=== PATIENT | male | born 1935 | race Caucasian/White ===

== ENCOUNTER 2021-12-19 08:36 | Outpatient (CLI) | payer MEDICARE, BC ==
[2021-12-19 09:40] LABS: Anion Gap 14 mmol/L (10-20); BUN (Urea Nitrogen) 17 mg/dL (8.4-25.7); Calc. Creatinine Clearance 0 mL/min (70-130); Calcium 9.2 mg/dL (7.8-10.44); Carbon Dioxide 25 mmol/L (23-31); Chloride 106 mmol/L (98-107); Estimated GFR 74; Glucose 148 mg/dL (83-110); Potassium 4.1 mmol/L (3.5-5.1); Sodium 141 mmol/L (136-145)
[2021-12-19 11:21] LABS: Bilirubin Negative (Negative); Blood, Urine Negative (Negative); Clarity Clear (Clear); Glucose, Urine (Dipstick) Negative (Negative); Ketone, Urine Negative (Negative); Leukocyte Negative (Negative); Nitrite Negative (Negative); Protein, Urine (Dipstick) Negative (Neg-Trace); Urobilinogen 0.2 mg/dL (Less than 2); pH, Urine 5.5 (5.0-9.0)
[2021-12-19 11:26] LABS: Urine Culture Reflex No No
[2021-12-19 11:46] LABS: Bacteria/HPF Rare-Few HPF (None Seen); RBC/HPF 0-3 HPF (0-3); Squamous Epithelial 0-3 HPF (0-3); WBC/HPF None Seen HPF (0-3)
== END 2021-12-19 08:37 | disposition home or self-care (01) ==
LOC: MADULT 08:36
PROVIDERS: ATTEND Urology
DX: N40.1 Benign prostatic hyperplasia with lower urinary tract symptoms (principal); N28.1 Cyst of kidney, acquired; N32.3 Diverticulum of bladder
CPT/HCPCS: 36415; 76770; 80048; 81001

== ENCOUNTER 2025-03-23 11:46 | Emergency (ER) | payer MEDICARE, BC ==
[2025-03-23] MEDS ORDERED: Dexamethasone 10 MG/ML VIAL ONE (13:14)
[2025-03-23 13:19] LABS: Glucose, Urine (Dipstick) Negative (Negative); Leukocyte Large (Negative); Protein, Urine (Dipstick) 100 mg/dL (Neg-Trace); Specific Gravity, Urine 1.025 (1.005-1.030)
[2025-03-23 13:25] LABS: Bacteria/HPF 2+ HPF (None Seen); CAUTI Indications for Culture Dysuria,urgency,freq; RBC/HPF 0-3 HPF (0-3); WBC/HPF Greater than 50 HPF (0-3)
[2025-03-23 13:26] LABS: Mucous/LPF 1+ LPF (<2+); Urine Culture Reflex Yes Yes
[2025-03-23 13:40] LABS: ALT (SGPT) 8 U/L (Less than 45); AST (SGOT) 17 U/L (11-34); Albumin 3.1 g/dL (3.1-4.5); Alkaline Phosphatase 84 U/L (40-110); Anion Gap 16 mmol/L (10-20); BUN (Urea Nitrogen) 24 mg/dL (8.4-25.7); Bilirubin, Total 0.6 mg/dL (0.3-1.2); Calc. Creatinine Clearance 0 mL/min (70-130); Calcium 8.9 mg/dL (7.8-10.44); Carbon Dioxide 24 mmol/L (23-31); Chloride 106 mmol/L (98-107); Globulin 3.6 g/dL (2.4-3.5); Glucose 204 mg/dL (83-110); Potassium 4.0 mmol/L (3.5-5.1); Sodium 142 mmol/L (136-145)
[2025-03-23] MEDS ORDERED: cefTRIAXone (ROCEPHIN) 1 GM VIAL ONE (13:52)
[2025-03-23 13:53] LABS: Hematocrit 40.7 % (42.0-52.0); Hemoglobin 13.3 g/dL (14.0-18.0); MDiff Complete? YES; Mean Corpuscular Hemoglobin 30.4 pg (27.0-31.0); Mean Corpuscular Volume 93.0 fl (78.0-98.0); Platelet Adequacy Comment Appears Adequate; Platelet Count 228 10x3/uL (130-400); Red Blood Cell (RBC) Count 4.38 mill/uL (4.70-6.10); White Blood Cell (WBC) Count 10.8 10x3/uL (4.8-10.8)
== END 2025-03-23 14:31 | disposition short-term general hospital (02) ==
LOC: MADERS 11:46
DX: N39.0 Urinary tract infection, site not specified (principal); M54.31 Sciatica, right side; R79.82 Elevated C-reactive protein (CRP); M21.2 Flexion deformity; E11.65 Type 2 diabetes mellitus with hyperglycemia; N40.1 Benign prostatic hyperplasia with lower urinary tract symptoms; N39.498 Other specified urinary incontinence; K57.90 Diverticulosis of intestine, part unspecified, without perforation or abscess without bleeding; Z79.899 Other long term (current) drug therapy
CPT/HCPCS: 36415; 51798; 80053; 81001; 83605; 85025; 86140; 87040; 87086; 96372; 99284; J0696; J1100